=== PATIENT | female | born 1990 | race Caucasian/White ===

== ENCOUNTER 2016-05-22 08:07 | Emergency (ER) | payer OTHER ==
[2016-05-22 08:21] VITALS: BP 143/66; PULSE 56; RESP 18; TEMP 98; O2SAT 99
[2016-05-22] MEDS ORDERED: DEXAMETHASONE 4 MG TAB PO ONE (08:57)
--- NOTE | 2016-05-22 08:59 | UCPHY ---
H & P Time Seen by Provider: 05/22/16 08:12 Patient Type: New HPI/ROS: CHIEF COMPLAINT: Concerns regarding strep throat HISTORY OF PRESENT ILLNESS: 18-year-old female presents with a sore throat for the last 3-4 days as well as decreased appetite. Patient denies a symptoms. She did lose her voice on the 1st day of the illness. Reports discomfort in her throat, and anorexia. No fevers or chills. No cough or chest pain or shortness of breath. No nausea or vomiting. No nasal congestion or discharge. REVIEW OF SYSTEMS: Aside from elements discussed in the HPI, a comprehensive 10-point review of systems was reviewed and is negative. PAST MEDICAL HISTORY: Denies. SOCIAL HISTORY: Works at the [employer]. Nonsmoker. VITAL SIGNS: see nurse's notes. GENERAL: Well-developed, well-nourished, in no acute distress. Speaks in a very soft, hoarse voice. HEENT: Atraumatic Eyes: PERRL, EOMI, no conjunctival injection. Ears: TM clear bilaterally. Nose: No discharge. Mouth: moist mucous membranes. Pharynx: no erythema, no exudates, no swelling, no abscess. Uvula is midline. NECK: Supple, no adenopathy, no meningismus, no tenderness. Negative Kernig's and Brudzinski's. LUNGS: Clear to auscultation bilaterally, no wheezes, rhonchi or rales. CARDIAC: Regular rate and rhythm, no rubs, murmurs or gallops. ABDOMEN: Soft, nontender, bowel sounds normal. EXTREMITIES: Normal, no edema, FROM. NEURO: Alert and oriented, grossly nonfocal. SKIN: Warm and dry, no rash. PSYCHIATRIC: Normal mentation, no agitation. Smoking Status: Never smoked Constitutional: Initial Vital Signs Temperature (C) 36.6 C 05/22/16 08:18 Heart Rate 56 L 05/22/16 08:18 Respiratory Rate 18 05/22/16 08:18 Blood Pressure 143/66 H 05/22/16 08:18 O2 Sat (%) 99 05/22/16 08:18 O2 Delivery Mode Room Air Allergies/Adverse Reactions: amoxicillin Allergy (Verified 05/22/16 08:17) Home Medications: Medication Instructions Recorded Iud 05/22/16 MDM/Departure - MDM ED Course/Re-evaluation: Suspect viral laryngitis. No stridor on examination. Looks well. Only complaint is hoarse voice and sore throat. Given Decadron 8 mg by mouth. Advised to use ibuprofen for pain and inflammation. Return if worse. Rapid strep negative. Differential Diagnosis: Differential diagnosis for the patient's sore throat was considered including but not limited to laryngitis, epiglottitis, bacterial tracheitis, viral pharyngitis, bacterial pharyngitis, tonsillitis, tonsillar abscess, peritonsillar abscess, foreign body. - Depart Disposition: Home, Routine, Self-Care Clinical Impression: Laryngitis, Sore throat and laryngitis Condition: Good Instructions: Pharyngitis (ED), Laryngitis (ED) Additional Instructions: The majority of her symptoms seem to be related to inflammation of the voice box. You been given a dose of Decadron, this will help with inflammation and pain. I recommend Ibuprofen (Motrin, Advil) or Naproxen Sodium (Aleve) for pain and anti-inflammatory effects. You may take either one, but do not take both. Your dose is: Ibuprofen 600 mg every 6-8 hours with food. OR Naproxen Sodium (Aleve) 220 mg every 12 hours. Salt water gargles and throat lozenges may also help control your symptoms. Return to urgent care if you develop a fever, worsening symptoms, difficulty breathing, difficulty swallowing, or other concerns. Referrals: NONE *PRIMARY CARE P,. [Primary Care Provider] - As per Instructions - PQRS PQRS Measurement: Not applicable
== END 2016-05-22 09:15 | disposition home or self-care (01) ==
LOC: CED 08:07
DX: J02.9 Acute pharyngitis, unspecified (principal); Z88.1 Allergy status to other antibiotic agents
CPT/HCPCS: 87880-PO; 99203-PO; G0463-PO